=== PATIENT | female | born 1980 | race Caucasian/White ===

== ENCOUNTER 2023-05-10 08:00 | Outpatient (CLI) | payer BC ==
--- NOTE | 2023-05-10 15:13 | XRAY Report ---
PROCEDURE: Chest 2 View X-Ray INDICATIONS: PRODUCTIVE COUGH TECHNIQUE: 2 views of the chest were acquired. COMPARISON: None. FINDINGS: Surgical changes and devices: None. Lungs and pleura: No pleural effusions or pneumothorax. Lungs are clear. Mediastinum: Mediastinal contours appear normal. Heart size is normal. Bones and chest wall: No suspicious bony lesions. Overlying soft tissues appear unremarkable. IMPRESSION: Normal two-view chest x-ray Reviewed by: Truman Gold MD on 05/10/2023 2:11 PM AKDT Approved by: Truman Gold MD on 05/10/2023 2:11 PM AKDT Station ID: [id number]
== END 2023-05-10 23:59 | disposition home or self-care (01) ==
LOC: DI.S 08:00
PROVIDERS: ATTEND Physician Assistant Medical
DX: R05.9 Cough, unspecified (principal); J45.901 Unspecified asthma with (acute) exacerbation

== ENCOUNTER 2023-05-13 14:47 | Outpatient (CLI) | payer BC | END 2023-05-13 14:48 | disposition critical access hospital (66) | LOC: EMS 14:47 | DX: R53.1 Weakness (principal); R42 Dizziness and giddiness; R25.1 Tremor, unspecified; R68.2 Dry mouth, unspecified | CPT/HCPCS: A0425; A0429 ==

== ENCOUNTER 2023-05-13 15:20 | Emergency (ER) | payer BC ==
[2023-05-13] MEDS ORDERED: SODIUM CHLORIDE 0.9% 1,000 ML IV STA (15:33)
[2023-05-13 15:49] LABS: MUDS CUTOFF CONCENTRATIONS CUTOFF CONC BELOW:
--- OUTSIDE RECORDS SUMMARY | 2023-05-13 15:51 | EXTERNAL MEDICAL SUMMARY RPT | Continuity of Care Document ---
Author Name Unknown Address [address] [place] [address] Phone Organization [facility] [address] [place] [address] Phone Care Team Providers Care Admissions Nurse Name Role Phone Unavailable Unavailable Unavailable Joseph Thurman Pa-C Unavailable Unavailable Medications date description facility 2023-05-10 00:00 dexamethasone [facility] 2023-05-13 00:00 bupropion hcl [facility] 2023-05-10 00:00 dexamethasone [facility] 2023-05-13 00:00 methimazole [facility] 2023-05-10 00:00 dexamethasone [facility] 2023-05-13 00:00 methimazole [facility] 2023-05-13 00:00 methimazole [facility] 2023-05-10 00:00 DEXAMETHASONE SODIUM PHOSPHATE [facility] 2023-05-13 00:00 methimazole [facility] 2023-05-13 00:00 bupropion hcl [facility] 2023-05-10 00:00 dexamethasone [facility] 2023-05-13 00:00 bupropion hcl [facility] 2023-05-13 00:00 bupropion hcl [facility] 2023-05-10 00:00 codeine-guaifenesin [facility] [place] Problems date description facility 2023-05-10 00:00 Acute asthma [facility] 2023-05-10 00:00 Productive cough [facility] [place] 2023-05-10 00:00 Asthma, unspecified with (acute) exacerbation [facility] [place] 2023-05-10 00:00 Cough [facility] [place] 2023-05-10 00:00 Unspecified asthma w ith (acute) exacerbation [facility] [place] 2023-05-10 00:00 Other specified cough [facility] [place] 2023-05-13 00:00 Adverse reaction to drug [facility] [place] 2023-05-13 00:00 Altered mental status [facility] [place] 2023-05-13 00:00 Unspecified adverse effect of unspecified drug, medicinal and biological substance [facility] [place] 2023-05-13 00:00 Altered mental status, unspecif ied [facility] [place] 2023-05-13 00:00 Adverse effect of un specified drugs, medicaments and biological substances, initial encounter [facility] [place] Procedures date description facility 2023-05-10 00:00 Visit Code Hold [facility] [place] 2023-05-13 00:00 Visit Code Hold [facility] [place] Results/Labs test date facility value unit notes Social History date description facility 2023-05-13 00:00 Never smoker [facility] [place] Vital Signs date measurement value units 2023-05-13 00:00 BMI 31.12 kg/m2 2023-05-13 00:00 BP_diastolic 86 mmHg 2023-05-13 00:00 BP_systolic 152 mmHg 2023-05-13 00:00 heart_rate 91 /min 2023-05-13 00:00 height_metric 170.18 cm 2023-05-13 00:00 height_standard 67 in 2023-05-13 00:00 respiration_rate 17 /min 2023-05-13 00:00 temperature_metric 36.72 C 2023-05-13 00:00 temperature_standard 98.1 F 2023-05-13 00:00 weight_metric 89.81 kg 2023-05-13 00:00 weight_standard 198 lb
[2023-05-13 16:01] LABS: BASOPHILS # (AUTO) 0.1 10^3/uL (0.0-0.1); BASOPHILS % (AUTO) 0.9 %; EOSINOPHILS # (AUTO) 0.1 10^3/uL (0.0-0.7); EOSINOPHILS % (AUTO) 0.8 %; HCT - HEMATOCRIT 43.2 % (37.0-47.0); HGB - HEMOGLOBIN 14.3 g/dL (12.0-16.0); LYMPHOCYTES # (AUTO) 2.6 10^3/uL (1.5-3.5); LYMPHOCYTES % (AUTO) 31.1 %; MEAN CORPUSCULAR HEMOGLOBIN 31.4 pg (27.0-31.0); MEAN CORPUSCULAR HGB CONC 33.1 g/dL (32.0-36.0); MEAN CORPUSCULAR VOLUME 94.7 fL (81.0-99.0); MONOCYTES # (AUTO) 0.6 10^3/uL (0.0-1.0); MONOCYTES % (AUTO) 7.5 %; NEUTROPHILS % (AUTO) 59.5 %; PLT - PLATELET COUNT 274 10^3/uL (130-450); RED BLOOD COUNT 4.56 10^6/uL (4.20-5.40); RED CELL DISTRIBUTION WIDTH 11.8 % (12.0-15.0); WHITE BLOOD COUNT 8.4 x10^3/uL (4.8-10.8)
[2023-05-13 16:03] LABS: AMPHETAMINE SCREEN,URINE NEGATIVE (NEGATIVE); BARBITURATE SCREEN,UR NEGATIVE (NEGATIVE); BENZODIAZEPINES SCREEN, URINE NEGATIVE (NEGATIVE); COCAINE SCREEN URINE NEGATIVE (NEGATIVE); METHADONE SCREEN, URINE NEGATIVE (NEGATIVE); METHAMPHETAMINES SCREEN, URINE NEGATIVE (NEGATIVE); OPIATE SCREEN, URINE POSITIVE (NEGATIVE); OXYCODONE SCREEN, URINE NEGATIVE (NEGATIVE); PROPOXYPHENE SCREEN, URINE NEGATIVE (NEGATIVE); THC CANNABINOID SCREEN, URINE NEGATIVE (NEGATIVE); TRICYCLIC ANTIDEPRESSANT,URINE NEGATIVE (NEGATIVE)
[2023-05-13 16:17] LABS: ALBUMIN/GLOBULIN RATIO 1.5 (1.0-2.2); ALKALINE PHOSPHATASE 45 IU/L (42-121); ALT ALANINE AMINOTRANSFERASE 29 IU/L (10-60); AST ASPARTATE AMINOTRANSFERASE 21 IU/L (10-42); BILIRUBIN,TOTAL 0.3 mg/dL (0.2-1.0); BUN - BLOOD UREA NITROGEN 15 mg/dL (6-20); CALCIUM 9.7 mg/dL (8.5-10.3); CARBON DIOXIDE - CO2 30 mmol/L (21-32); CHLORIDE 105 mmol/L (101-111); CREATININE 0.9 mg/dL (0.6-1.3); CRP - C-REACTIVE PROTEIN < 0.5 mg/dL (<0.5); ETOH - ETHANOL < 10.0 mg/dL; GFR - MDRD 68 (>89); GLUCOSE 94 mg/dL (74-104); LIPASE 32 U/L (11-82); POTASSIUM 4.3 mmol/L (3.5-4.5); SODIUM 139 mmol/L (135-145); TOTAL PROTEIN 6.6 g/dL (6.4-8.9)
--- NOTE | 2023-05-13 16:50 | ED Physician Documentation ---
History of Present Illness - Stated complaint Stated Complaint: GEN WEAKNESS - Chief complaint Chief Complaint: General - History obtained from History obtained from: Patient, EMS - Additonal information Additional information: The patient comes to the emergency department chief complaint of "feeling weird" after taking a Mucinex DM tablet this morning. She states that she has been under a lot of stress lately and then got an upper respiratory infection. She took a Mucinex around 1015 this morning and about an hour later, began to feel disconnected from her body. She states her voice did not seem normal and she could not really feel her arms and legs. She just felt generally weak, but denies any focal weakness. Patient denies any fevers or chills. No nausea or vomiting. No dysuria. She is on a cough syrup with codeine, the last dose of which she took last night. She denies taking anything else other than her methimazole and bupropion, which she is normally on. The patient states she has taken Mucinex one other time but although she did not like the way it made her feel, it was not this bad. Patient states she has a history of somewhat similar reaction to Benadryl, though that mostly made her feel anxious. She states she is very sensitive to medications. She states she only took 1 tablet of the Mucinex this morning. No alcohol or other drugs. The patient is visiting with her from [place] and has been taking care of her ill mother in [place]. She states they are out here for a short vacation. No other complaints at this time. PD PAST MEDICAL HISTORY - Allergies Allergies/Adverse Reactions: Allergies Allergy/AdvReac Type Severity Reaction Status Date / Time diphenhydramine Allergy Anxiety Verified 05/13/23 15:48 [From Benadryl] PD ED PE NORMAL - Vitals Vital signs reviewed: Yes - General General: Alert and oriented X 3, No acute distress, Well developed/nourished, Other (The patient appears slightly slow and drowsy, but is able to communicate clearly.) - HEENT HEENT: Atraumatic, PERRL, EOMI, Moist mucous membranes - Neck Neck: Supple, no meningeal sign - Cardiac Cardiac: RRR, No murmur, Strong equal pulses - Respiratory Respiratory: No respiratory distress, Clear bilaterally - Abdomen Abdomen: Soft, Non tender, Non distended - Derm Derm: Normal color, Warm and dry, No rash - Extremities Extremities: No deformity, No edema - Neuro Neuro: Alert and oriented X 3, 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 She also has some truncal weakness and requires assistance with rising from supine to upright position.) - Psych Psych: Normal mood, Normal affect Results - Vitals Vitals: Vital Signs - 24 hr 05/13/23 05/13/23 05/13/23 15:33 17:08 17:58 Temperature 36.4 C L Heart Rate 58 L 54 L 67 Respiratory 20 18 18 Rate Blood Pressure 119/75 110/71 115/80 O2 Saturation 100 100 100 Oxygen O2 Source Room air - Labs Labs: Laboratory Tests 05/13/23 05/13/23 05/13/23 15:34 15:56 15:56 WBC 8.4 RBC 4.56 Hgb 14.3 Hct 43.2 MCV 94.7 MCH 31.4 H MCHC 33.1 RDW 11.8 L Plt Count 274 MPV 10.0 Neut # (Auto) 5.0 Lymph # (Auto) 2.6 [place] # (Auto) 0.6 Eos # (Auto) 0.1 Baso # (Auto) 0.1 Absolute Nucleated RBC 0.00 Nucleated RBC % 0.0 ESR 3 Sodium Potassium Chloride Carbon Dioxide Anion Gap BUN Creatinine Estimated GFR (MDRD) Glucose Calcium Total Bilirubin AST ALT Alkaline Phosphatase C-Reactive Protein Total Protein Albumin Globulin Albumin/Globulin Ratio Lipase Urine Opiates Screen POSITIVE H Ur Oxycodone Screen NEGATIVE Urine Methadone Screen NEGATIVE Ur Propoxyphene Screen NEGATIVE Ur Barbiturates Screen NEGATIVE Ur Tricyclics Screen NEGATIVE Ur Phencyclidine Scrn NEGATIVE Ur Amphetamine Screen NEGATIVE U Methamphetamines Scrn NEGATIVE U Benzodiazepines Scrn NEGATIVE Urine Cocaine Screen NEGATIVE U Cannabinoids Screen NEGATIVE Ethyl Alcohol 05/13/23 15:56 WBC RBC Hgb Hct MCV MCH MCHC RDW Plt Count MPV Neut # (Auto) Lymph # (Auto) [place] # (Auto) Eos # (Auto) Baso # (Auto) Absolute Nucleated RBC Nucleated RBC % ESR Sodium 139 Potassium 4.3 Chloride 105 Carbon Dioxide 30 Anion Gap 4.0 L BUN 15 Creatinine 0.9 Estimated GFR (MDRD) 68 L Glucose 94 Calcium 9.7 Total Bilirubin 0.3 AST 21 ALT 29 Alkaline Phosphatase 45 C-Reactive Protein < 0.5 Total Protein 6.6 Albumin 4.0 Globulin 2.6 Albumin/Globulin Ratio 1.5 Lipase 32 Urine Opiates Screen Ur Oxycodone Screen Urine Methadone Screen Ur Propoxyphene Screen Ur Barbiturates Screen Ur Tricyclics Screen Ur Phencyclidine Scrn Ur Amphetamine Screen U Methamphetamines Scrn U Benzodiazepines Scrn Urine Cocaine Screen U Cannabinoids Screen Ethyl Alcohol < 10.0 PD Medical Decision Making - ED course Complexity details: reviewed results, re-evaluated patient, considered differential, d/w patient ED course: The patient was worked up with labs, urinalysis, drug screen, and Head CT. Labs overall looked good. Drug screen showed positive for opiates which reflected the cough syrup with codeine the patient had been on. TSH was pending at the time of this dictation as was head CT. The patient was reevaluated and found to be slowly improving, though she did still seem to be a bit altered and still lacked strength in her trunk and neck. At this point in time, I have signed the patient out to Dr. Angel who is also evaluated the patient at change of shift. make a final disposition that time. She is pending remainder of labs, head CT, and final disposition. Departure - Departure Forms: PCP List
--- NOTE | 2023-05-13 19:12 | CT Report ---
PROCEDURE: HEAD WO INDICATIONS: ALOC/truncal weakness TECHNIQUE: Noncontrast 4.5 mm thick angled axial sections acquired from the foramen magnum to the vertex. For r adiation dose reduction, the following was used: automated exposure control, adjustment of mA and/or kV according to patient size. COMPARISON: None. FINDINGS: Image quality: Excellent CSF spaces: Dilated CSF spaces seen in the posterior fossa between the posterior cerebellar hemispher es. Basal cisterns are patent. Volume: Minimal volume loss. Brain: No intracranial hemorrhage. Saucedo-white differentiation is grossly maintained. Craniofacial structures: Mild mucosal thickening of the paranasal sinuses. IMPRESSION: No acute intracranial abnormality. Dilated CSF space in the posterior fossa, probably chronic. If there is sufficient clinical concern, consider further evaluation with MRI. Reviewed by: Jc Vivar MD on 05/13/2023 7:10 PM PDT Approved by: Jc Vivar MD on 05/13/2023 7:10 PM PDT Station ID: [id number]
--- NOTE | 2023-05-13 19:39 | ED Physician Documentation ---
ED Addendum - Addendum Addendum: 05/13/23 19:38 Patient signed out to me by Dr. Heredia pending head CT. CT results as well as her labs were discussed with the patient and her at the bedside. She is much better now. Albeit not quite normal. She would like to be discharged. She was given close return precautions. : Disposition: Discharged home Condition: Stable
[2023-05-13 19:54] VITALS: BP 120/83; O2SAT 98
== END 2023-05-13 19:49 | disposition home or self-care (01) ==
LOC: EDUNIT# → ED 15:20
DX: R41.82 Altered mental status, unspecified (principal)
CPT/HCPCS: 36415; 80053; 80306; 80320; 83690; 84443; 85025; 85651; 86140; 99283; 99284